=== PATIENT | female | born 1960 | race Caucasian/White ===

== ENCOUNTER → 2016-08-19 | Outpatient (CLI) | payer BC, OTHER ==
[~2016-08-19] MED LIST: ASPIRIN EC325 MG PO; ASPIRIN EC81 M1; ASPIRIN325 PO; CARVEDILOL12.5 MG PO; CARVEDILOL25 MG PO; COREG PO; DILTIAZEM HCL90 MG PO; FLECAINIDE ACE100 MG PO; FUROSEMIDE 40 M40 M1 PO; LISINOPRIL5 MG; MOBIC15 MG PO; MOBIC7.5 MG PO; POTASSIUM20 PO; PROPAFENONE 22225 M1 PO; TRIAMTERENE-HC1 EAC1 PO
--- NOTE | ~2016-08-19 | 2DMMODE ---
[facility] [employer] [place] [address] 2 D/M-MODE ECHOCARDIOGRAM Name: AVASHANKARPATTY Emery Room #: REG [facility]#: [id number] Admission: 08/19/16 Attend Phys: Fred Alvarez Discharge: Date of : 58 Date of Service: 08/19/16 1546 Report #: [id number] THIS REPORT FOR: //name// APPROVED REPORT Study performed: 08/19/2016 11:26:47 EXAM: Comprehensive 2D, Doppler, and color-flow Echocardiogram Patient Location: Echo lab Blood Pressure: 150/90 mmHg HR: 84 bpm Other Information Study Quality: Technically Difficult Indications Dyspnea Atrial Fibrillation 2D Dimensions RVDd: 36.88 mm IVC: 23.00 mm Volumes Left Atrial Volume (Systole) Single Plane 4CH: 90.89 mL Single Plane 2CH: 90.84 mL LA ESV Index: 38.00 mL/m2 Aortic Valve AoV Peak El.: 1.88 m/s AO Peak Gr.: 14.33 mmHg Mitral Valve MV Decel. Time: 163.08 ms MV E Max El.: 0.96 m/s Pulmonary Valve PV Peak El.: 1.13 m/s PV Peak Gr.: 5.09 mmHg Tricuspid Valve TR Peak El.: 2.79 m/s RAP Estimate: 10.00 mmHg TR Peak Gr.: 31.25 mmHg [facility] [place] [address] 2 D/M-MODE ECHOCARDIOGRAM Name: PATTY FULTON Room #: REG [facility]#: [id number] Admission: 08/19/16 Attend Phys: Fred Alvarez Discharge: Date of : 58 Date of Service: 08/19/16 1546 Report #: [id number] Left Ventricle The left ventricle is normal size. There is no ventricular septal defect visualized. Left ventricular systolic function appears normal. Difficult to assess due to patient body habitus and suboptimal images. No left ventricle thrombus noted on this study. LVEF is 55-60%. This study is not technically sufficient to allow evaluation of the LV diastolic function due to atrial fibrillation. Right Ventricle Right ventricle is dilated. There is normal right ventricular wall thickness. The right ventricular systolic function appears normal. Atria Left atrium is mildly dilated. The interatrial septum appears intact with no evidence for an atrial septal defect. Right atrium is mildly dilated. Aortic Valve Aortic valve is not well visualized but appears to be trileaflet. No aortic regurgitation is present. There is no aortic valvular vegetation. There is no aortic valvular stenosis. Mitral Valve The mitral valve appears normal in structure. Trace mitral regurgitation. There is no evidence of mitral valve vegetations. No evidence of mitral valve stenosis. There is no evidence of mitral valve prolapse. Tricuspid Valve The tricuspid valve is normal in structure. There is no tricuspid valve stenosis. Mild tricuspid regurgitation. There is no tricuspid valve vegetations. Pulmonic Valve Pulmonic valve is not well visualized. There is no pulmonic valvular stenosis. There is no pulmonic valvular regurgitation. There is no pulmonic valve vegetations. Great Vessels The aortic root is not well visualized but is probably normal size. IVC is dilated and collapses >50% with inspiration. The pulmonary artery is normal. Pericardium [facility] [address] [place] [address] 2 D/M-MODE ECHOCARDIOGRAM Name: PATTY FULTON Room #: [facility] Lockett#: [id number] Admission: 08/19/16 Attend Phys: Fred Alvarez Discharge: Date of : 58 Date of Service: 08/19/16 1546 Report #: [id number] There is no pericardial effusion. There is no pleural effusion. <Conclusion> The left ventricle is normal size. Left ventricular systolic function appears normal. Difficult to assess due to patient body habitus and suboptimal images. There is no ventricular septal defect visualized. No left ventricle thrombus noted on this study. LVEF is 55-60%. Right ventricle is dilated. Left atrium is mildly dilated. Right atrium is mildly dilated. The interatrial septum appears intact with no evidence for an atrial septal defect. Aortic valve is not well visualized but appears to be trileaflet. The mitral valve appears normal in structure. Trace mitral regurgitation. There is no evidence of mitral valve vegetations. The tricuspid valve is normal in structure. Mild tricuspid regurgitation. Pulmonic valve is not well visualized. The aortic root is not well visualized but is probably normal size. <ELECTRONICALLY SIGNED> By: Fred March MD 08/19/16 1546 1546 1546 Fred March MD /INF
== END ==
LOC: CV 09:08
DX: I48.91 Unspecified atrial fibrillation (principal); R06.00 Dyspnea, unspecified

== ENCOUNTER → 2016-10-27 | Outpatient (CLI) | payer BC, OTHER ==
[~2016-10-27] MED LIST changes: +PACERONE 200 M200 M1 PO; +PRINIVIL20 M1 PO; +XARELTO20 MG PO
== END ==
LOC: ULTRA 09:22
DX: C54.1 Malignant neoplasm of endometrium (principal); N85.00 Endometrial hyperplasia, unspecified; N93.9 Abnormal uterine and vaginal bleeding, unspecified

== ENCOUNTER → 2017-06-07 | Outpatient (CLI) | payer BC, OTHER | LOC: HYPER 06:52 | DX: I87.2 Venous insufficiency (chronic) (peripheral) (principal); L97.821 Non-pressure chronic ulcer of other part of left lower leg limited to breakdown of skin; L97.811 Non-pressure chronic ulcer of other part of right lower leg limited to breakdown of skin; I89.0 Lymphedema, not elsewhere classified; I10 Essential (primary) hypertension; M19.90 Unspecified osteoarthritis, unspecified site; E66.9 Obesity, unspecified; I48.0 Paroxysmal atrial fibrillation; Z68.43 Body mass index [BMI] 50.0-59.9, adult ==

== ENCOUNTER → 2017-06-14 | Outpatient (CLI) | payer BC, OTHER | LOC: HYPER 07:02 | DX: L97.821 Non-pressure chronic ulcer of other part of left lower leg limited to breakdown of skin (principal); L97.811 Non-pressure chronic ulcer of other part of right lower leg limited to breakdown of skin; I87.2 Venous insufficiency (chronic) (peripheral); I89.0 Lymphedema, not elsewhere classified; I10 Essential (primary) hypertension; I48.0 Paroxysmal atrial fibrillation; E66.9 Obesity, unspecified; Z68.43 Body mass index [BMI] 50.0-59.9, adult ==

== ENCOUNTER → 2021-02-03 | Outpatient (CLI) | payer BC, OTHER | LOC: SJCVCIMAG 09:39 | PROVIDERS: ATTEND Internal Medicine | DX: I08.1 Rheumatic disorders of both mitral and tricuspid valves (principal); I11.0 Hypertensive heart disease with heart failure ==